=== PATIENT | male | born 1960 | race Hispanic/Latino ===

== ENCOUNTER → 2019-07-13 | Outpatient (CLI) | payer OTHER | END | disposition home or self-care (01) | LOC: OIH 13:36 | PROVIDERS: ATTEND Internal Medicine | DX: M19.042 Primary osteoarthritis, left hand (principal); M19.041 Primary osteoarthritis, right hand; M47.816 Spondylosis without myelopathy or radiculopathy, lumbar region; M06.4 Inflammatory polyarthropathy | CPT/HCPCS: 72100; 72202 ==